=== PATIENT | male | born 1970 | race African-American/Black ===

== ENCOUNTER 2021-03-14 11:59 | Emergency (ER) | payer SELFPAY ==
[~2021-03-14] VITALS: Ht 182.9 cm; Wt 90.7 kg
[2021-03-14] MEDS ORDERED: ETOMIDATE (2MG/ML) 20ML VIAL IV ONE ×3 (12:05→12:30)
[2021-03-14] MEDS ORDERED: MIDAZOLAM DRIP 50 mg/50mL 50 ML IV ONE (12:05)
[2021-03-14] MEDS ORDERED: SUCCINYLCHOLINE CHLORIDE 20 MG/ML 10ML VIAL IV ONE ×3 (12:06→12:30)
[2021-03-14 12:10] VITALS: BP 259/144
[2021-03-14] MEDS ORDERED: SODIUM CHLORIDE 0.9% 500 ML IVB ONE (12:15)
[2021-03-14] MEDS ORDERED: LORazepam 2MG/ML-1ML VIAL IV ONE (12:30)
[2021-03-14] MEDS ORDERED: MIDAZOLAM DRIP 50 mg/50mL 50 ML IV SCH (12:30)
[2021-03-14 13:12] LABS: Hematocrit 46.4 % (41.0-53.0); Hemoglobin 14.9 g/dL (13.5-17.5); Mean Corpuscular Hemoglobin 29.4 pg (28.0-32.0); Mean Corpuscular Hgb Conc. 32.1 g/dL (32.0-36.0); Mean Corpuscular Volume 91.5 fL (80.0-100.0); Red Blood Cells 5.07 10^6/uL (4.5-5.90); Red Cell Distribution Width 15.7 % (11.8-14.3); White Blood Cell 20.4 10^3/uL (4.4-10.8)
[2021-03-14 13:23] LABS: Amphetamine Screen, Urine NEGATIVE (NEGATIVE); Barbiturate Scree,Urine NEGATIVE (NEGATIVE); Benzodiazephine Screen, Urine NEGATIVE (NEGATIVE); Cannabinoid Screen, Urine POSITIVE (NEGATIVE); Cocaine Screen, Urine NEGATIVE (NEGATIVE); Opiate Scree,Urine NEGATIVE (NEGATIVE); Phencyclidine Screen, Urine NEGATIVE (NEGATIVE)
[2021-03-14 13:25] LABS: Basophils % (manual) 0 (0.0-2.0); Blast Cells 0; Metamyelocytes % 0; Myelocytes % 0; Promyelocytes % 0; Reactive Lymphocytes 0
[2021-03-14 13:31] LABS: Albumin 4.3 g/dL (3.4-5.0); Anion Gap 25 (5-15); Blood Urea Nitrogen 14 mg/dL (7-18); Calcium 9.1 mg/dL (8.5-10.1); Carbon Dioxide 11 mmol/L (21-32); Chloride 104 mmol/L (98-107); Glucose 177 mg/dL (74-106); Magnesium 2.9 mg/dL (1.6-2.6); Sodium 140 mmol/L (136-145)
[2021-03-14 13:38] VITALS: BP 151/99
[2021-03-14 13:38] LABS: Alanine Aminotransferase 34 U/L (16-61); Alkaline Phosphatase 107 U/L (45-117); Aspartate Aminotransferase 19 U/L (15-37); BUN/Creatinine Ratio 9.7; Bilirubin, Total 0.5 mg/dL (0.2-1.0); GFR African American 66 mL/min; GFR Non-African American 55 mL/min; Total Protein 8.7 g/dL (6.4-8.2)
[2021-03-14] MEDS ORDERED: PROPOFOL 100 ML IV ONE (13:43)
[2021-03-14 13:44] LABS: Urine Bacteria NONE SEEN /hpf (None Seen); Urine Blood TRACE /uL (Negative); Urine Hyaline Cast FEW /lpf (0 - 2); Urine Specific Gravity 1.012 (1.001-1.035); Urine WBC 2 /hpf (0 - 3)
[2021-03-14 13:51] LABS: Band Neutrophils % (manual) 2; Eosinophils % (manual) 1 (0-7); Lymphocytes % (manual) 22 (10.0-50.0); Monocytes % (manual) 1 (0-12)
[2021-03-14 14:00] VITALS: BP 144/95
[2021-03-14] MEDS ORDERED: PROPOFOL 100 ML IV SCH (14:00)
== END 2021-03-14 14:07 | disposition short-term general hospital (02) ==
LOC: ER 11:59 → EDBD 11:59 → ER 14:07
DX: I61.9 Nontraumatic intracerebral hemorrhage, unspecified (principal); R56.9 Unspecified convulsions; I10 Essential (primary) hypertension; Z20.822 Contact with and (suspected) exposure to COVID-19
CPT/HCPCS: 31500; 36415; 70450; 71045; 80053; 80307; 80320; 81001; 83735; 84484; 85007; 85027; 87070; 87077; 87205; 87426; 93005; 96365; 96375; 99291; J0330; J1953; J2250; J2704; J7060; 94003